=== PATIENT | female | born 1985 | race Caucasian/White ===

== ENCOUNTER → 2020-04-16 | Outpatient (CLI) | payer MEDICAID | END | disposition home or self-care (01) | LOC: LABWHC1 09:29 | PROVIDERS: ATTEND Obstetrics & Gynecology | DX: Z36.9 Encounter for antenatal screening, unspecified (principal) | CPT/HCPCS: 36415; 82950 ==

== ENCOUNTER 2020-07-24 17:11 | Inpatient (IN) | payer MEDICAID ==
[2020-07-24 17:27] LABS: Glucose,Whole Blood 134 mg/dL (75-99)
[2020-07-24] MEDS ORDERED: METHYLERGONOVINE 0.2 MG/ML 1 ML AMP IM PRN (17:46)
[2020-07-24] MEDS ORDERED: TERBUTALINE 1 MG/ML VIAL SQ PRN (17:46)
[2020-07-24] MEDS ORDERED: OXYTOCIN 10 UNIT/ML 1 ML VIAL IM PRN (17:46)
[2020-07-24] MEDS ORDERED: CARBOPROST TROMETHAMINE 250 MCG/ML 1 ML AMP IM PRN (17:46)
[2020-07-24] MEDS ORDERED: LIDOCAINE 0.5% (PF) 5 MG/ML (50 ML SDV) SQ PRN (17:46)
[2020-07-24] MEDS ORDERED: BUTORPHANOL 1 MG/ML 1 ML VIAL IV PRN (17:49)
[2020-07-24] MEDS: LACTATED RINGERS 1,000 ML IV SCH (18:20)
[2020-07-24 18:31] LABS: Glucose,Whole Blood 111 mg/dL (75-99)
[2020-07-24 18:55] LABS: Basophils # (A) 0.1 k/uL (0-0.2); Basophils % (A) 0 %; Eosinophils % (A) 0 %; HCT 40.6 % (34.0-46.0); HGB 14.2 gm/dL (11.4-16.0); Lymphocytes # (A) 1.3 k/uL (1.0-4.8); Lymphocytes % (A) 6 %; MCH 31.4 pg (25.0-35.0); MCHC 35.1 g/dL (31.0-37.0); MCV 89.4 fL (80.0-100.0); Monocytes # (A) 0.7 k/uL (0-1.0); Monocytes % (A) 4 %; Neutrophils # (A) 17.5 k/uL (1.3-7.7); Neutrophils % (A) 89 %; Platelet Count 160 k/uL (150-450); RBC 4.54 m/uL (3.80-5.40); RDW 12.5 % (11.5-15.5); WBC 19.8 k/uL (3.8-10.6)
[2020-07-24 19:22] LABS: Glucose,Whole Blood 98 mg/dL (75-99)
[2020-07-24] MEDS ORDERED: ROPIVACAINE 5MG/ML 20ML VIAL ONE (21:29)
[2020-07-24] MEDS ORDERED: fentaNYL (PF) 50 MCG/ML 5 ML AMP ONE (21:29)
[2020-07-24] MEDS ORDERED: SODIUM CHLORIDE 0.9% 100 ML BAG ONE (21:29)
[2020-07-24] MEDS ORDERED: ROPIVACAINE 100 MG, fentaNYL (PF). 200 MCG in SODIUM CHLORIDE 0.9% 76 ML EPIDURAL ONE (21:51)
[2020-07-24 22:59] LABS: Glucose,Whole Blood 97 mg/dL (75-99)
[2020-07-25] MEDS: LACTATED RINGERS 1,000 ML IV SCH (00:16)
[2020-07-25 02:22] LABS: Glucose,Whole Blood 92 mg/dL (75-99)
[2020-07-25] MEDS ORDERED: OXYTOCIN 30 UNITS/500 ML NS 30 UNIT in SALINE 1 500ML.BAG IV SCH (02:30)
--- NOTE | 2020-07-25 02:37 | P.HPOB ---
History of Present Illness H&P Date: 07/25/20 Chief Complaint: 40-4/7 weeks intrauterine , labor The patient is a 35-year-old 1 para 0 admitted at 40-4/7 weeks as established by last menstrual period and confirmed by second trimester ultrasound. She is admitted in early active labor with all signs reassuring. She had been scheduled for induction in the morning but instead found herself akin and presented to the hospital at 4 cm of dilation. Her has been complicated by gestational diabetes which has required insulin at the end but has otherwise been well controlled. testing has been reassuring. She also carries a history of LEEP twice in the past. Group B strep status is negative. Obstetrical history: 1 para 0 with current statistics listed in history present illness. EDC of 07/21/2020 was established by last menstrual period and confirmed by second trimester ultrasound. Laboratory workup demonstrates a blood type of B+ with a negative antibody screen. Rubella status is immune. The remainder of the laboratory workup was within normal limits. One hour Glucola was elevated to a point that the patient was declared diabetic and sent for diabetic education and ultimately required insulin supplementation. Group B strep status is negative. Her trimester ultrasound has demonstrated normal growth at the 44th percentile. Gynecologic history: Unremarkable with no history of any infections to include STDs. Review of Systems Review of systems is confined to history of present illness. Past Medical History Additional Past Medical History / Comment(s): Gestational diabetes History of Any Multi-Drug Resistant Organisms: None Reported Past Surgical History: Tonsillectomy Additional Past Surgical History / Comment(s): Tubes in ears Past Anesthesia/Blood Transfusion Reactions: No Reported Reaction Past Psychological History: No Psychological Hx Reported Smoking Status: Never smoker Past Alcohol Use History: None Reported Past Drug Use History: None Reported - Past Family History Mother Family Medical History: No Reported History Medications and Allergies Home Medications Medication Instructions Recorded Confirmed Type Pnv No.95/Ferrous Fum/Folic AC 1 each PO DAILY 04/26/20 07/24/20 History [ Multivitamin Tablet] Insulin Degludec [Tresiba] 8 units SQ HS 07/24/20 07/24/20 History Allergies Allergy/AdvReac Type Severity Reaction Status Date / Time No Known Allergies Allergy Verified 04/26/20 14:39 Exam Vital Signs Temp Pulse Resp BP 07/24/20 17:24 98.0 F 110 H 18 125/79 Intake and Output 07/24/20 07/24/20 07/25/20 14:59 22:59 06:59 Intake Total 1400 Balance 1400 Intake: IV 1400 Other: # Voids 2 Weight 89.811 kg In general, this is a well-developed, well-nourished white female in no acute distress. Her heart has a regular rhythm and rate without murmur. Her lungs are clear to auscultation bilaterally in all wiley. Her abdomen is gravid, nondistended, has normal active bowel sounds, is soft, nontender, and without any palpable masses aside from uterine fundus. Her extremities are without any cyanosis, clubbing, or significant edema and are nontender to palpation bilaterally. Digital cervical examination at this time demonstrates her surgery dilated to an anterior lip with 100% effacement and the vertex in presentation at approximately 0 to -1 station. She did have spontaneous rupture of membranes for clear fluid approximately 2 hours ago. Results Result Diagrams: 07/24/20 18:15 Abnormal Lab Results - Last 24 Hours (Table) 07/24/20 07/24/20 07/24/20 Range/Units 17:25 18:15 18:30 WBC 19.8 H (3.8-10.6) k/uL Neutrophils # 17.5 H (1.3-7.7) k/uL POC Glucose (mg/dL) 134 H 111 H (75-99) mg/dL Assessment and Plan (1) Active labor at term Current Visit: Yes Status: Acute Code(s): [id number] - SNOMED Code(s): 86191393 Plan: The patient has epidural catheter in place for analgesia. She will continue to have close maternal and surveillance and expectant management will be practiced. I would anticipate a spontaneous vaginal delivery in the next hour or 2.
[2020-07-25] MEDS ORDERED: diphenhydrAMINE 50 MG CAP PO PRN (04:44)
[2020-07-25] MEDS ORDERED: HYDROCORTISONE 2.5% RECTAL CREAM 30 GM TUBE RECTAL PRN (04:44)
[2020-07-25] MEDS ORDERED: IBUPROFEN 600 MG TAB PO PRN (04:44)
[2020-07-25] MEDS ORDERED: diphenhydrAMINE 50 MG/ML 1 ML VIAL IVP PRN ×2 (04:44)
[2020-07-25] MEDS ORDERED: HYDROcodone/APAP 7.5-325MG 1 EACH TAB PO PRN (04:44)
[2020-07-25] MEDS ORDERED: ACETAMINOPHEN TAB 325 MG TAB PO PRN (04:44)
[2020-07-25] MEDS ORDERED: ZOLPIDEM 5 MG TAB PO PRN (04:44)
[2020-07-25] MEDS ORDERED: SIMETHICONE 80 MG CHEWABLE PO PRN (04:44)
[2020-07-25] MEDS ORDERED: diphenhydrAMINE 25 MG CAP PO PRN (04:44)
[2020-07-25] MEDS ORDERED: LANOLIN CREAM 5 GM TUBE TOPICAL PRN (04:44)
[2020-07-25] MEDS ORDERED: BENZOCAINE/MENTHOL SPRAY 1 GM/SPRAY AEROSOL TOPICAL PRN (04:44)
[2020-07-25] MEDS ORDERED: HYDROcodone/APAP 5-325MG 1 EACH TAB PO PRN (04:44)
[2020-07-25] MEDS ORDERED: OXYTOCIN 20 UNITS/1000 ML NS 1,000 ML IV SCH (04:45)
--- NOTE | 2020-07-25 04:50 | P.PROBDLV ---
Vaginal Delivery Note - . Vaginal Delivery Note: The patient is a 35-year-old 1 para 0 admitted at 40-4/7 weeks by good dating parameters perches admitted in early active labor with all signs reassuring. Her has been relatively uncomplicated though she was diagnosed with gestational diabetes that ultimately required insulin in the late third trimester. testing has been reassuring throughout. Group B strep status is negative. On labor and delivery, she made progress into the active phase of labor and had an epidural catheter placed for analgesia. She then had spontaneous rupture of membranes for clear fluid and continued to progress to approximately anterior lip at which time Pitocin augmentation was added. She ultimately progressed to complete and then pushed over the course of approximately 1 hour and 10 minutes to a normal spontaneous vaginal delivery of a viable 7 lbs. 9 oz. baby boy with Apgars of 8 at 1 minute and 9 at 5 minutes delivered in the right occiput anterior position. There was a mild shoulder dystocia which was reduced Soley with Gonzalo maneuver. Following delivery of the , it was clear that there was meconium-stained fluid. The placenta delivered spontaneously, intact, and was grossly normal with a grossly normal three-vessel cord inserted approximately 4-5 cm from the margin of the placental disc. There was a small second-degree midline perineal laceration which was repaired in standard fashion using 3-0 chromic catgut without difficulty. Estimated blood loss for the case is approximately 200 mL. There were no complications. All sponge, instrument, and needle counts were correct. Both mother and are resting comfortably in recovery.
[2020-07-25] MEDS: SENNOSIDES-DOCUSATE SODIUM 1 EACH TAB PO SCH ×2 (08:41→19:38)
[2020-07-25 13:11] VITALS: RESP 16
[2020-07-25 13:21] LABS: HIV 2 AB Non-Reactive (Non-Reactive); HIV AB P24 Non-Reactive (Non-Reactive); HIV P24 AG Non-Reactive (Non-Reactive)
[2020-07-26 07:31] LABS: Basophils % (A) 0 %; Eosinophils # (A) 0.1 k/uL (0-0.7); Eosinophils % (A) 1 %; HGB 12.4 gm/dL (11.4-16.0); Lymphocytes # (A) 2.7 k/uL (1.0-4.8); Lymphocytes % (A) 21 %; MCH 31.6 pg (25.0-35.0); MCHC 34.4 g/dL (31.0-37.0); MCV 91.8 fL (80.0-100.0); Mean Platelet Volume 9.5; Monocytes # (A) 0.5 k/uL (0-1.0); Monocytes % (A) 4 %; Neutrophils # (A) 9.4 k/uL (1.3-7.7); Neutrophils % (A) 72 %; Platelet Count 135 k/uL (150-450); RBC 3.92 m/uL (3.80-5.40); RDW 12.8 % (11.5-15.5); WBC 13.1 k/uL (3.8-10.6)
--- NOTE | 2020-07-26 07:50 | P.DS ---
Providers Date of admission: 07/24/20 17:49 Expected date of discharge: 07/26/20 Attending physician: Marii Guadalupe Primary care physician: Stated None Hospital Course: This is a 35-year-old white female 1 para 0 EDC 07/21/2020 at 40-4/7 weeks' gestation who presented in spontaneous active labor. is remarkable for gestational diabetes, managed on insulin. Blood type B positive, rubella status immune, group B strep cultures negative. Please see dictated history and physical for details. Amniorrhexis revealed clear fluid. Oxytocin was started and titrated per hospital protocol after an epidural was placed. Patient progressed well and delivered vaginally a liveborn male with scores of 8 and 9 at one and 5 minutes respectively. Estimated blood loss 200 mL, second-degree laceration easily repaired. Infant weighed 7 lbs. 9 oz. or 34-5 g. Please see dictated delivery note for details. This morning the patient is doing well. She is voiding, ambulating, passing flatus without difficulty. Vital signs are stable and she is afebrile. Fundus is firm and in the midline, symmetric and 18 week size. Extremities reveal no edema. Breast-feeding is going well. [place] has been circumcised. Patient is judged to be in very good condition for discharge home. We have briefly reviewed options for contraception and she will consider these options, we will discuss this further in the office. She is reminded no intercourse, tampons or douching. She will use [id number] Advil as needed for pain. She will continue taking her vitamin. I've asked her to call with any fevers shakes or chills, foul smelling or copious lochia, with the passage of large blood clots, with any pain not alleviated by Advil, or indeed with any concerns. Assessment: Doing well day #1 Patient Condition at Discharge: Good Plan - Discharge Summary Discharge Rx Participant: No New Discharge Prescriptions: No Action Pnv No.95/Ferrous Fum/Folic AC [ Multivitamin Tablet] 1 each PO DAILY Insulin Degludec [Tresiba] 8 units SQ HS Discharge Medication List Pnv No.95/Ferrous Fum/Folic AC [ Multivitamin Tablet] 1 each PO DAILY 04/26/20 [History] Insulin Degludec [Tresiba] 8 units SQ HS 07/24/20 [History] Follow up Appointment(s)/Referral(s): Marii Guadalupe MD [STAFF PHYSICIAN] - 6 Weeks Discharge Disposition: HOME SELF-CARE
[2020-07-26 09:44] VITALS: BP 121/82; PULSE 92; TEMP 97.9
== END 2020-07-26 11:50 | disposition home or self-care (01) | DRG 807 ==
LOC: FBPOP 17:11 → 4FBP 17:49
PROVIDERS: ADMIT Obstetrics & Gynecology; ATTEND Obstetrics & Gynecology
PROC: 3E033VJ Introduction of Other Hormone into Peripheral Vein, Percutaneous Approach (ICD-10-PCS; principal; 2020-07-25)
PROC: 00HU33Z Insertion of Infusion Device into Spinal Canal, Percutaneous Approach (ICD-10-PCS; principal; 2020-07-25)
PROC: 10E0XZZ Delivery of Products of Conception, External Approach (ICD-10-PCS; principal; 2020-07-25)
PROC: 3E0R3NZ Introduction of Analgesics, Hypnotics, Sedatives into Spinal Canal, Percutaneous Approach (ICD-10-PCS; principal; 2020-07-25)
PROC: 10907ZC Drainage of Amniotic Fluid, Therapeutic from Products of Conception, Via Natural or Artificial Opening (ICD-10-PCS; principal; 2020-07-25)
PROC: 0KQM0ZZ Repair Perineum Muscle, Open Approach (ICD-10-PCS; principal; 2020-07-25)
DX: O24.424 Gestational diabetes mellitus in childbirth, insulin controlled (principal); Z37.0 Single live birth; O66.0 Obstructed labor due to shoulder dystocia; O70.1 Second degree perineal laceration during delivery; Z3A.40 40 weeks gestation of pregnancy
CPT/HCPCS: 83036; 85025; 86803; 86850; 86900; 86901; 87390; 99213